=== PATIENT | male | born 1955 | race Caucasian/White ===

== ENCOUNTER 2023-03-16 07:18 | Emergency (ER) | payer MEDICARE, OTHER ==
[~2023-03-16] VITALS: Ht 165.1 cm; Wt 79.5 kg
[2023-03-16 07:24] VITALS: BP 172/89
[2023-03-16] MEDS ORDERED: ketorolac trometh inj. 60 MG/2 ML VIAL IM ONE (07:40)
[2023-03-16] MEDS ORDERED: oxyCODONE/APAP 5-325mg tablet PO ONE (07:40)
[2023-03-16] MEDS ORDERED: OXYC-134 PO (09:19)
== END 2023-03-16 09:20 | disposition home or self-care (01) ==
LOC: ER 07:20
DX: S22.42XA Multiple fractures of ribs, left side, initial encounter for closed fracture (principal); W19.XXXA Unspecified fall, initial encounter; Y93.89 Activity, other specified; Y92.89 Other specified places as the place of occurrence of the external cause; Y99.8 Other external cause status
CPT/HCPCS: 71250; 96372; 99285; J1885